=== PATIENT | male | born 1980 | race Caucasian/White ===

== ENCOUNTER 2023-10-14 18:17 | Emergency (ER) | payer OTHER, SELFPAY ==
[2023-10-14 18:17] VITALS: BMI 34.5
[2023-10-14 18:23] VITALS: BP 171/110
[2023-10-14 18:51] LABS: % Basophils 0.6 % (0-2); % Eosinophils 2.3 % (0-6); % Immature Granulocytes 0.2 % (0-0.5); % Lymphocytes 25.8 % (20.5-51.1); % Monocytes 6.7 % (1.7-9.3); % Neutrophils 64.4 % (42.2-75.2); Absolute Eosinophils 0.2 10^3/uL (0-0.7); Absolute Lymphocytes 1.7 10^3/uL (1.2-3.4); Absolute Monocytes 0.4 10^3/uL (0.1-0.6); Absolute Neutrophils 4.2 10^3/uL (1.4-6.5); Hematocrit 41.3 % (39.0-52.0); Hemoglobin 14.5 g/dL (13.0-18.0); Mean Corp Hgb Conc. 35.1 g/dL (33.0-37.0); Mean Corpuscular Hgb 29.8 pg (27.0-31.0); Mean Corpuscular Volume 84.8 fL (80.0-94.0); Mean Platelet Volume 9.6 fL (7.4-10.4); Nucleated Red Blood Cells % 0 % (-); Platelet Count 263 10^3/uL (130-400); Red Blood Cell Count 4.87 10^6/uL (4.70-6.10); White Blood Cell Count 6.6 10^3/uL (4.8-10.8)
[2023-10-14 19:15] LABS: Troponin I < 0.012 ng/ml
[2023-10-14 19:22] LABS: ALT (SGPT) 67 U/L (0-50); AST (SGOT) 48 U/L (17-59); Albumin 4.8 g/dl (3.5-5.0); Alkaline Phosphatase 81 U/L (38-126); Blood Urea Nitrogen 18 mg/dl (9-20); Calcium 9.7 mg/dl (8.4-10.2); Carbon Dioxide 29 mmol/L (22-30); Chloride 100 mmol/L (98-107); Glucose 126 mg/dl (70-99); Potassium 4.3 mmol/L (3.5-5.1); Sodium 141 mmol/L (135-145); Total Bilirubin 0.8 mg/dl (0.2-1.3); Total Protein 7.2 g/dl (6.3-8.2); eGFR > 60.00
[2023-10-14 20:39] VITALS: BP 164/104
[2023-10-14 21:07] VITALS: BP 156/96
[2023-10-14 21:30] VITALS: BP 151/91
[2023-10-14 22:00] VITALS: BP 163/107
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
[2023-10-14] MEDS: ANTIVERT 25 MG PO (22:21)
[2023-10-14 22:30] VITALS: BP 168/109
[2023-10-14 22:46] LABS: Alcohol None Detected
--- NOTE | 2023-10-14 23:34 | EDRN ---
Pt walking around and states that he feels so much better.
== END 2023-10-14 23:59 | disposition home or self-care (01) ==
LOC: EMR 18:17
PROVIDERS: Emergency Medicine; EMERGENCY PHYSICIAN Emergency Medicine; FAMILY PHYSICIAN Family Medicine
DX: R42 Dizziness and giddiness (principal); I10 Essential (primary) hypertension; Z87.891 Personal history of nicotine dependence
CPT/HCPCS: 99285; 70450; 80053; 82077; 84484; 85025; 93005